=== PATIENT | male | born 1955 | race Caucasian/White ===

== ENCOUNTER 2019-12-02 13:44 | Outpatient (CLI) | payer BC | END 2019-12-02 13:45 | disposition home or self-care (01) | LOC: COV 13:44 | PROVIDERS: ATTEND Family Medicine | DX: R05 Cough (principal); R50.9 Fever, unspecified | CPT/HCPCS: 81599 ==

== ENCOUNTER 2020-01-05 16:47 | Outpatient (CLI) | payer OTHER, BC ==
--- NOTE | 2020-01-06 09:41 | XRAY Report ---
Reason: LOCALIZED EDEMA Procedure Date: 01/05/2020 Accession Number: [id number] / [id number] Procedure: XR - Foot 3 View RT CPT Code: Final Report FULL RESULT: EXAM: RIGHT FOOT RADIOGRAPHY EXAM DATE: 01/05/2020 05:13 PM. CLINICAL HISTORY: Localized edema. Foot pain after fall. COMPARISON: XR FOOT COMPLETE MIN 3 VIEWS 04/20/2010 2:31 PM. TECHNIQUE: 3 views. FINDINGS: Bones: There is a minimally displaced fracture at the base of the fifth metatarsal. No additional fractures detected. Joints: Within normal limits. Soft Tissues: No subcutaneous radiopaque foreign bodies. IMPRESSION: Minimally displaced fracture at the base of the fifth metatarsal. RADIA
== END 2020-01-05 16:48 | disposition home or self-care (01) ==
LOC: DI 16:47
PROVIDERS: ATTEND Nurse Practitioner Family
DX: S92.351A Displaced fracture of fifth metatarsal bone, right foot, initial encounter for closed fracture (principal)